=== PATIENT | female | born 1975 | race Caucasian/White ===

== ENCOUNTER 2020-11-14 06:24 | Observation (INO) | payer OTHER ==
[~2020-11-14] VITALS: Ht 162.6 cm; Wt 91.2 kg
[2020-11-14] VITALS (9 sets, daily range): BP systolic 107–134; BP diastolic 56–73
--- NOTE | ~2020-11-14 | O ---
[facility] [place] [address] OPERATIVE REPORT Name: HALI OCHOA Room #: 448-P [facility] MTasha#: [id number] Admission: 11/14/20 Attend Phys: Valentin Kraus MD Discharge: Date of : 71 Report #: [id number] THIS REPORT FOR: cc: FAM - No family physician/PCP FAM - No family physician/PCP Valentin Kraus MD ~ DATE OF SERVICE: 11/14/2020 PREOPERATIVE DIAGNOSES: 1. Refractory gastroesophageal reflux. 2. Small hiatal hernia. POSTOPERATIVE DIAGNOSES: 1. Refractory gastroesophageal reflux. 2. Small hiatal hernia. OPERATIVE PROCEDURES DONE: 1. Laparoscopic placement of a magnetic esophageal sphincter augmentation. 2. Repair of hiatal hernia. OPERATING SURGEON: Valentin Kraus MD MACHINE STAMPER: ____ INDICATIONS FOR THE PROCEDURE: The patient is a 45-year-old female who presented with complaints of severe refractory reflux and regurgitation that she has been having for many years. She has been on PPIs; however, continues to have symptoms. She had an upper GI endoscopy that was done that showed a small hiatal hernia. 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 The patient was advised magnetic esophageal sphincter augmentation with LINX. The patient showed understanding and agreed to proceed. DESCRIPTION OF PROCEDURE: After explaining to the patient in detail and informed consent was obtained, the patient was identified in the preoperative holding area. The patient was transferred to the operating room and was placed in supine position. Sequential compressive devices were placed for DVT prophylaxis. Preoperative antibiotics were given. After induction of anesthesia, the abdomen was prepped and draped in a sterile fashion. Through a left upper quadrant 1 cm incision and using Optiview technique, peritoneal cavity was entered and pneumoperitoneum was created. So, thereafter under direct vision, another 12 mm trocar was placed in the left mid abdomen, another 5 mm trocar was placed in the right mid abdomen, another 5 mm trocar was placed in the right flank and through a 1 cm incision in the epigastrium, a Mally retractor was introduced and the left lobe of the liver was retracted. Upon [facility] [address] [place] [address] OPERATIVE REPORT Name: HALI OCHOA Room #: 448-P [facility] MOleksandr.#: [id number] Admission: 11/14/20 Attend Phys: Valentin Kraus MD Discharge: Date of : 71 Report #: [id number] initial inspection, the patient was noted to have a 3 cm sized hiatal hernia. Using pars flaccida technique, the right antonia was identified. The sac was gently dissected off the right antonia using initially with hook electrocautery and subsequently with EnSeal device. I continued dissection anteriorly. The phrenoesophageal membrane was divided. The gastrophrenic ligament was divided and the angle of His was mobilized distally. I then did a posterior dissection. Once circumferential dissection was completed, I continued to mobilize the esophagus superiorly in the mediastinum as much as possible. I dissected it anterior, posterior lateral and on both sides as much as possible to get adequate length on the esophagus within the abdominal cavity. I had about 3-4 cm of the esophagus within the abdominal cavity without any tension. I then performed a posterior cruroplasty with a [id number] Ethibond suture. Care was taken not to tighten the crura too much. I then identified the posterior vagus and isolated it free from the esophagus. I then placed a [place] drain behind the esophagus and between the vagus and the esophagus. I then used this as a retraction. I then used the sizer device to assess the size of the augmentation device and using this device, I noted that the circumferential number was 16. Care was taken not to have any tightening on the device. Therefore, I chose a 16 size LINX device and this was placed on the esophagus and was then approximated together in the magnetic groove. The sutures were then removed. The [place] drain was removed. The Mally retractor was removed. Absolute hemostasis was ensured. The 12 mm port site incision was closed with 0 Vicryl for the fascia. Skin was closed with 4-0 Monocryl for all the incisions. Dermabond was applied. The patient was stable at the end of the procedure. The patient was awoken from anesthesia and was transferred to the recovery room in stable condition. ESTIMATED BLOOD LOSS: Approximately 10 mL. CONDITION OF THE PATIENT: Stable. FLUIDS GIVEN: Per anesthesia notes. SPECIMEN SENT: None. COMPLICATIONS: None. ANESTHESIA: General anesthesia. By: [id number] Valentin Kraus MD /nt
[~2020-11-14 06:24] MED LIST: ABILIFY 5 MG TAB5 M1 PO; ASA81BEC PO; ATIVAN0.5 M1 PO; BUSPIRONE HCL10 MG PO; COLESTID1 GM PO; CYMBALTA60 MG PO; DILTIAZEM HCL60 MG PO; ESTRADIOL 1 MG T1 M1 PO; IMDUR 30 MG TAB30 M1 PO; INCRUSE ELLI62.5 MCG INH; ISOSORBIDE DINI30 MG PO; LAMOTRIGINE100 MG PO; LIPITOR10 MG PO; LISINOPRIL5 MG PO; METFORMIN HCL500 MG PO; PROAIR HFA8.5 GM INH; PROPRANOLOL 20M20 M1 PO; PROTONIX40 M4 PO; TRAZODONE HCL100 MG PO
--- NOTE | 2020-11-14 07:15 | EKG ---
[address] [place] [address] ELECTROCARDIOGRAM REPORT Name: HALI OCHOA Room #: 150-4 [facility]#: [id number] Admission: 11/14/20 Attend Phys: Valentin Kraus MD Discharge: Date of : 71 Report #: [id number] [facility] Test Date: 2020-11-14 Test Time: 06:58:35 Pat Name: HALI OCHOA Department: Room: Gender: F 911 Emergency Services Dispatcher: CHRISTINA : 1975 Requested By: Valentin Kraus Order Number: [id number] : Billy Celaya Measurements Intervals [place] Rate: 61 P: 74 SC: 165 QRS: 61 QRSD: 79 T: 103 QT: 402 QTc: 405 Interpretive Statements Sinus rhythm Borderline T abnormalities, lateral leads No previous ECG available for comparison Electronically Signed On 11-14-2020 7:15:18 [employer] by Billy Celaya [email or web address] <ELECTRONICALLY SIGNED> By: Billy Celaya MD, [facility] 11/14/20 0715 [id number] Billy Celaya MD, FACC /EPI
--- NOTE | 2020-11-14 13:34 | NUR ---
ASSUMED PT CARE UPON TRANSFER TO UNIT AT 1228. PT VSS, A&OX4. PT DROWSY, BUT ABLE TO WAKE UP TO ANSWER ADMISSION QUESTIONS. REPORTS PAIN IN THE ABDOMEN, BUT WAITING FOR PATIENT TO WAKE UP MORE TO GIVE PAIN MEDS. IV PATENT. LAP SITES INTACT AND DRY. ON 4 L NC. BOYFRIEND AT BEDSIDE. FALL PRECAUTIONS IN PLACE.
--- NOTE | 2020-11-14 22:46 | NUR ---
ASSESSED AT START OF SHIFT. PT A&OX4. RATES PAIN IN ABDOMEN 04/16. PAIN MED GIVEN. 5 LAPSITES INTACT WITH DERMABOUND. IV INTACT AND SALINE LOCK. PT UP WITH SBA TO THE BATHROOM. PT STATED TAKES TRAZADONE FOR SLEEP AND REQUESTED IT FOR TONIGHT. CALLED AND ORDER RECIEVED. PT WEARS CPAP AT NIGHT. ICE PACK PROVIDED FOR COMFORT. PT ON 4L OF O2 AND 90% ON RA. INCENTIVE SPIROMETER ENCOURAGED. WILL CONT TO MONITOR.
[2020-11-15 03:25] VITALS: BP 127/67
[2020-11-15 07:11] VITALS: BP 136/55
[2020-11-15] MEDS ORDERED: MIRALAX17 GM PO (10:14)
[2020-11-15] MEDS ORDERED: HYDROCODONE-ACE15 ML PO (10:14)
--- NOTE | 2020-11-15 11:07 | NUR ---
Assumed pt care this am. Pt is alert & oriented x4. VPt is up with assistance x1 and uses gaitbelt to transfer pt from bed to chair. Pt on RA and currently sitting on the chair watching TV. Pt reported BM this am. IV site on R FA. Encourage to continue IS and educated pursed lip breathing. Pt demonstated pursed lip breathing back. Educated the purpose of Linx. Pt rated pain 9/10 on the abdomen. Given pain meds. Family at the bedside. Call light within reach. Will continue to monitor. Follow POC.
--- NOTE | 2020-11-15 13:22 | NUR ---
ASSESSMENT: CM REVIEWED CHART. PT IS S/P HERNIA REPAIR. PT REPORTS THAT SHE LIVES IN A DUPLEX WITH HER . PT REPORTS ABOUT 5 STEPS WITH HANDRAIL TO ENTER AND HAS NO STEPS ONCE INSIDE. PT REPORTS THAT SHE IS INDEPENDENT WITH ADLS AND HAS A WALKER AT HOME TO ASSIST WITH AMBULATION IF NEEDED. PT REPORTS SHE HAD HH A FEW YEARS AGO [facility] AND DENIES BEING TO SNF. PT REPORTS HAVING A CPAP AT HOME. CM DISCUSSED ROLE. PT REPORTS SHE DOES NOT ANTICIPATE HAVING ANY NEEDS FROM CM AT THIS TIME. LIKELY DISCHARGE LATER TODAY.
[2020-11-15 13:34] VITALS: BP 136/55
== END 2020-11-15 13:59 | disposition home or self-care (01) ==
LOC: TBA 06:24 → OR 06:24 → TBA 06:25 → OR 09:30 → 4S 12:23 → OR 15:26 → 4S 11-15 13:59
PROVIDERS: ADMIT Surgery; ATTEND Surgery
DX: K21.9 Gastro-esophageal reflux disease without esophagitis (principal); K44.9 Diaphragmatic hernia without obstruction or gangrene; I10 Essential (primary) hypertension; E11.9 Type 2 diabetes mellitus without complications; E78.5 Hyperlipidemia, unspecified; J44.9 Chronic obstructive pulmonary disease, unspecified; M19.90 Unspecified osteoarthritis, unspecified site; G47.30 Sleep apnea, unspecified; F32.9 Major depressive disorder, single episode, unspecified; F17.210 Nicotine dependence, cigarettes, uncomplicated; Z79.899 Other long term (current) drug therapy
CPT/HCPCS: 50010; 50101; 50386; 50555; 50558; 50804; 52265; 52266; 53307; 53310; 54022; 54118; 55326; 56462; 56525; 56526; 56531; 57092; 58104; 58574; 62110; 62900; 70005